=== PATIENT | female | born 1990 | race American Indian/Alaskan Native ===

== ENCOUNTER 2018-06-29 07:43 | Emergency (ER) | payer SELFPAY ==
[2018-06-29 07:51] VITALS: BP 167/104
[2018-06-29] MEDS ORDERED: ULTRAM PO ONE (11:19)
--- NOTE | 2018-06-29 11:26 | Emergency Department Report ---
ED General Adult HPI - General Chief complaint: Dental/Oral Stated complaint: TOOTHACHE/HEADACHE Time Seen by Provider: 06/29/18 11:00 Source: patient Mode of arrival: Ambulatory Limitations: No Limitations - History of Present Illness Initial comments: Patient complains of right upper and left upper dental pain. Patient states that for the last 24 hours she is a significant amount of pain. Patient states she has not had any relief with home medications which include Aleve and Tylenol. Patient denies fever but states eating or drinking anything makes it worse -: Gradual Location: mouth Radiation: non-radiation Severity scale (0 -10): 6 Quality: aching Consistency: constant Worsens with: cold therapy, eating Associated Symptoms: denies other symptoms Treatments Prior to Arrival: none - Related Data Previous Rx's Medication Instructions Recorded Last Taken Type HYDROcodone/APAP 5-325 [Brave 1 each PO Q6HR PRN #20 tablet 06/29/18 Unknown Rx 5/325] Penicillin V Potassium 500 mg PO TID #21 tablet 06/29/18 Unknown Rx traMADol [Ultram] 50 mg PO Q6HR PRN #20 tablet 06/29/18 Unknown Rx Allergies Allergy/AdvReac Type Severity Reaction Status Date / Time No Known Allergies Allergy Unverified 06/29/18 07:50 ED Review of Systems ROS: Stated complaint: TOOTHACHE/HEADACHE Other details as noted in HPI Constitutional: denies: chills, fever Eyes: denies: eye pain, eye discharge, vision change ENT: dental pain. denies: ear pain, throat pain Respiratory: denies: cough, shortness of breath, wheezing Cardiovascular: denies: chest pain, palpitations Endocrine: no symptoms reported Gastrointestinal: denies: abdominal pain, nausea, diarrhea Genitourinary: denies: urgency, dysuria, discharge Musculoskeletal: denies: back pain, joint swelling, arthralgia Skin: denies: rash, lesions Neurological: denies: headache, weakness, paresthesias Psychiatric: denies: anxiety, depression Hematological/Lymphatic: denies: easy bleeding, easy bruising ED Past Medical Hx - Past Medical History Previous Medical History?: No - Surgical History Additional Surgical History: rt knee - Social History Smoking Status: Never Smoker Substance Use Type: None - Medications Home Medications: Home Medications Medication Instructions Recorded Confirmed Last Taken Type HYDROcodone/APAP 5-325 [Brave 1 each PO Q6HR PRN #20 tablet 06/29/18 Unknown Rx 5/325] Penicillin V Potassium 500 mg PO TID #21 tablet 06/29/18 Unknown Rx traMADol [Ultram] 50 mg PO Q6HR PRN #20 tablet 06/29/18 Unknown Rx ED Physical Exam - General Limitations: No Limitations General appearance: alert, in no apparent distress - Head Head exam: Present: atraumatic, normocephalic - Eye Eye exam: Present: normal appearance - ENT ENT exam: Present: mucous membranes moist, other (dental caries of the right upper molars) - Neck Neck exam: Present: normal inspection - Respiratory Respiratory exam: Present: normal lung sounds bilaterally. Absent: respiratory distress, wheezes, rales, rhonchi - Cardiovascular Cardiovascular Exam: Present: regular rate, normal rhythm. Absent: systolic murmur, diastolic murmur, rubs, gallop - GI/Abdominal GI/Abdominal exam: Present: soft, normal bowel sounds. Absent: distended, tenderness - Extremities Exam Extremities exam: Present: normal inspection - Back Exam Back exam: Present: normal inspection - Neurological Exam Neurological exam: Present: alert, oriented X3, CN II-XII intact. Absent: motor sensory deficit - Psychiatric Psychiatric exam: Present: normal affect, normal mood - Skin Skin exam: Present: warm, dry, intact, normal color. Absent: rash ED Course Vital Signs 06/29/18 07:50 Temperature 98.9 F Pulse Rate 92 H Respiratory 20 Rate Blood Pressure 167/104 O2 Sat by Pulse 98 Oximetry ED Medical Decision Making - Medical Decision Making Discussed plan of care with patient Critical care attestation.: If time is entered above; I have spent that time in minutes in the direct care of this critically ill patient, excluding procedure time. ED Disposition Clinical Impression: Pain, dental Disposition: [id number] TO HOME OR SELFCARE Is pt being admited?: No Does the pt Need Aspirin: No Condition: Stable Instructions: Toothache (ED) Additional Instructions: return if worse Prescriptions: HYDROcodone/APAP 5-325 [Brave 5/325] 1 each PO Q6HR PRN #20 tablet PRN Reason: Pain Penicillin V Potassium 500 mg PO TID #21 tablet traMADol [Ultram] 50 mg PO Q6HR PRN #20 tablet PRN Reason: Pain Referrals: PRIMARY CARE, [Primary Care Provider] - 3-5 Days [facility] [Outside] - 3-5 Days Time of Disposition: 11:27
== END 2018-06-29 11:47 | disposition home or self-care (01) ==
LOC: ED 07:43
DX: K08.89 Other specified disorders of teeth and supporting structures (principal)
CPT/HCPCS: 99282